=== PATIENT | female | born 1995 | race Caucasian/White ===

== ENCOUNTER 2022-10-14 22:46 | Emergency (ER) | payer SELFPAY ==
[~2022-10-14] VITALS: Ht 160 cm; Wt 58.1 kg
[2022-10-14 22:55] VITALS: BP 116/73
== END 2022-10-15 01:56 | disposition left against medical advice (07) ==
LOC: ER 22:46
DX: H57.89 Other specified disorders of eye and adnexa (principal); L29.9 Pruritus, unspecified; Z53.21 Procedure and treatment not carried out due to patient leaving prior to being seen by health care provider
CPT/HCPCS: 99281